=== PATIENT | female | born 1995 | race Two or more races ===

== ENCOUNTER 2021-09-06 13:53 | Emergency (ER) | payer MEDICAID ==
[~2021-09-06] VITALS: Ht 152.4 cm; Wt 99.8 kg
[2021-09-06 14:04] VITALS: BP 134/72
--- NOTE | 2021-09-06 15:06 | NUR ---
COVID PCR AND FLU SWAB DONE AND SENT TO LAB
[2021-09-06] MEDS ORDERED: CEPH500C2 PO (16:37)
[2021-09-06] MEDS ORDERED: ACETAMINOPHEN ES 500 MG TABLET ONE (16:56)
[2021-09-06] MEDS ORDERED: ACETAMINOPHEN ES 500 MG TABLET PO ONE (17:00)
--- NOTE | 2021-09-06 17:08 | NUR ---
Patient discharged to home in stable condition. Written and verbal after care instructions given. Patient verbalizes understanding of instruction.
== END 2021-09-06 17:09 | disposition home or self-care (01) ==
LOC: ER 13:53
DX: R05.9 Cough, unspecified (principal); Z20.822 Contact with and (suspected) exposure to COVID-19; T24.012A Burn of unspecified degree of left thigh, initial encounter; L03.116 Cellulitis of left lower limb; X19.XXXA Contact with other heat and hot substances, initial encounter; Y92.89 Other specified places as the place of occurrence of the external cause; Z88.2 Allergy status to sulfonamides; Z91.010 Allergy to peanuts
CPT/HCPCS: 87804; 99283; C9803; U0003

== ENCOUNTER 2021-10-08 10:02 | Emergency (ER) | payer MEDICAID ==
[~2021-10-08] VITALS: Ht 157.5 cm; Wt 104.3 kg
[~2021-10-08 10:02] MED LIST: CEPH500C2 PO
[2021-10-08 10:13] VITALS: BP 109/63
[2021-10-08] MEDS ORDERED: ACYC400T19 PO (10:39)
== END 2021-10-08 10:46 | disposition home or self-care (01) ==
LOC: ER 10:20
DX: A60.1 Herpesviral infection of perianal skin and rectum (principal); Z91.010 Allergy to peanuts; Z88.2 Allergy status to sulfonamides; Z60.2 Problems related to living alone; Z79.899 Other long term (current) drug therapy